=== PATIENT | male | born 1945 | race Caucasian/White ===

== ENCOUNTER → 2016-11-12 | Outpatient (CLI) | payer BC ==
[~2016-11-12] MED LIST: ASPI1TAB69 PO; ASPI81 PO; ATOR10 PO; ATOR10TA15 PO; BECL80AE3 INH; CALC1TAB12 PO; COEN400C2 PO; DICL75TA PO; FIBE0.523 PO; FISH1000 PO; FLUT1SPR5 EACH NARE; GLUC1CAP14 PO; GLUC500C56 PO; MELO7.5T PO; MULT1TAB84 PO; NIAC500T18 PO; OMEGCAP PO; OYST500T71 PO; PENT400T19 PO; RHINSUS; SAW500CA6 PO; TAB-TAB PO; VITA10007 PO; VITA500T10 PO; ZOFR8TAB PO
--- NOTE | 2016-11-12 19:35 | EKG ---
Date Performed: 11/12/2016 Time Performed: 10:21:38 PTAGE: 71 years EKG: Sinus rhythm SEPTAL MYOCARDIAL INFARCTION , PROBABLY OLD Compared to prior tracing no significant change ABNORMAL ECG PREVIOUS TRACING : 01/11/2013 13.52 DOCTOR: Maciel Delarosa Interpretating Date/Time 11/12/2016 19:35:21
== END ==
LOC: HECH 10:09
PROVIDERS: ATTEND Family Medicine
DX: Z01.818 Encounter for other preprocedural examination (principal); R94.31 Abnormal electrocardiogram [ECG] [EKG]
CPT/HCPCS: 93005

== ENCOUNTER → 2016-12-09 | Day surgery (SDC) | payer BC, MEDICARE ==
--- NOTE | 2016-11-17 18:37 | MH ---
cc: YESSENIA WINKLER DATE OF ADMISSION: 12/09/2016 ADMITTING DIAGNOSIS: 1. Complete rotator cuff tear of the left shoulder. 2. Acromioclavicular arthrosis, left shoulder. 3. Biceps tendon rupture, left shoulder. 4. Pain left shoulder. HISTORY OF PRESENT ILLNESS: The patient is a 71 year-old white male who has experienced pain involving his left shoulder of greater than sns-woc-m-half years duration. He had noted the gradual onset of soreness generalized about the shoulder area, unrelated to injury or unusual activity. During this interval of time he became increasingly more symptomatic with pain as he attempted to conform to a routine exercise program. He was aware of an intermittent grinding-like sensation about the shoulder area for which he has been taking diclofenac for pain management. He is uncertain as to whether or not the medication had really proven to be of any significant relief regarding his shoulder symptoms. He had also been applying a topical cream to the shoulder area. He presented to the undersigned physician in October of this past year and at that time x-ray studies of the left shoulder did reveal elevation of the humeral head in relationship to the glenoid. There was no significant degenerative change otherwise appreciated. The patient did receive a local steroid injection and subsequently underwent an MRI scan evaluation of his left shoulder, the results of which identified a full thickness tear of the supraspinatus tendon at its insertion including the distal fibers of the infraspinatus tendon with a gap measuring approximately 2 x 2.5 cm. There was severe thinning of the distal subscapularis tendon, associated fatty atrophy of the involved muscles. There was a moderately severe acromioclavicular joint arthrosis and a retracted proximal biceps tendon tear. The patient continued to experience pain about his shoulder area and expressed his desire to proceed with a more definitive course of treatment. The involvement of operative intervention involving an acromioplasty of the left shoulder with an attempted mini open rotator cuff repair was reviewed in detail. The patient indicated his understanding in this regard and expressed his desire to proceed accordingly. In compliance with his wishes, he is currently being admitted in order that the above be accomplished. He is left-hand dominant. PAST MEDICAL HISTORY, HOSPITALIZATIONS AND SURGERIES 1. Bilateral total hip arthroplasties. 2. Radical neck dissection for history of cancer with surgery, preceded by chemo and radiation therapy. 3. Dental extraction. 4. Colonoscopy. 5. Bilateral inguinal herniorrhaphies with mesh insertion. 6. Root canal. MEDICAL ILLNESSES 1. Elevated cholesterol. 2. History of cervical cancer. 3. Arthritis. CURRENT MEDICATIONS 1. Lipitor 10 mg daily. 2. Trental 400 mg twice daily. 3. Diclofenac 75 mg daily 4. 81 milligram aspirin tablet daily. 5. Zofran 8 mg as taken on a p.r.n. basis. Additional medications include qmwd-dxp-tjoyzes products such as: 1. Multivitamin tablet. 2. Co Q10. 3. Saw palmetto. 4. Calcium with D3. 5. Krill oil. 6. Niacin. 7. Collagen supplement. ALLERGIES: The patient denies any known drug allergies. He has an environmental allergy to dust mites, ragweed, mold, cats and cedar. REVIEW OF SYSTEMS: He does wear glasses. Denies headache, seizure. He has a history of syncope in the past. Auditory acuity intact. No tinnitus. No bleeding gums or dysphagia. No cough, shortness of breath, pneumonia or tuberculosis. No angina or heart disease. Appetite good. Bowel movements regular. No hepatitis, gallbladder disease or ulcers. He has had hemorrhoids in the past. No urinary tract infection. No kidney stones. No prostate disease, fracture of the right wrist and left ankle, treated nonoperatively. No psychiatric illness. The remainder of the review of systems is unremarkable and noncontributory. FAMILY HISTORY: The patient has been 30 years. His is 68 years of age in good health, no children. Family history of positive for heart and kidney disease, hypertension and stroke. 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 He completed a Ph.D. degree. He denies active use of tobacco, ethanol consumption involving wine with dinner. PHYSICAL EXAMINATION: Height 5 feet 7 inches, weight 214 pounds. GENERAL: An alert, oriented responsive 71-year-old white male who sits quietly upon the examination table with no obvious distress. HEAD, EYES, EARS, NOSE, AND THROAT: Pupils are equal, round and reactive to light. Extraocular movements full. Sclerae clear. External nares clear. External auditory canals clear. Dental intact. Mucous membranes pink and moist. Pharynx clear. There is contracted scar formation about the neck area consistent with prior history of radical neck dissection, limited mobility at the extremes of motion that the patient describes being chronic in nature. Trachea midline. Thyroid without enlargement. Lungs: Clear to auscultation and percussion. No CVA tenderness. No discomfort throughout the dorsal lumbar spine. Heart: Regular rhythm. No murmur or gallop. Abdomen: Soft, nontender. Bowel sounds present. Rectal: Per primary care physician. Extremities: Left shoulder: No significant tenderness is elicited with palpation about the shoulder area. There is limited mobility at the extremes of overhead positioning if the patient actively attempts to posture his left hand above his head. There is prominence of the biceps musculature consistent with a rupture of the long head of the biceps. No obvious instability about the shoulder joint. There is subjective crepitation at the extremes of motion. Drop arm test is minimally positive as is Everett sign. Mild weakness of external rotation. [employer] strength intact. Sensory intact. Neurologic: Cranial nerves II-XII grossly intact. IMPRESSION Complete rotator cuff tear of the left shoulder, acromioclavicular arthrosis, left shoulder biceps tendon rupture left shoulder, pain left shoulder PLAN Acromioplasty left shoulder with an attempted mini open rotator cuff repair. The nature of the planned surgical procedure, the potential complications and risks associated, the expectations of surgery and the consent form were thoroughly reviewed with the patient prior to his admission to the hospital. Giovanni has indicated his full understanding regarding all of the above and given consent to proceed with treatment as outlined. Medical evaluation and clearance for surgery will be completed by his primary care physician Dr. Ming Barbour. Yessenia Winkler MD [facility] /5:30 PM /5:43 PM
[~2016-12-09] VITALS: Ht 170.2 cm; Wt 95.5 kg
[~2016-12-09] MED LIST changes: -ASPI81 PO; -ATOR10 PO; +BUPIVACAINE HCL PF 0.5% 30 ML VIAL NB ONE; +DEXAMETHASONE SOD PHOS PF 10 MG/ML VIAL IV ONE; +FAMOTIDINE 20 MG/2 ML VIAL ONE; -FIBE0.523 PO; -FISH1000 PO; -GLUC500C56 PO; +INSULIN HUMAN REGULAR 1,000 UNITS/10 ML VIAL SQ PRN; +KETOROLAC TROMETHAMINE 60 MG/2 ML (IM) VIAL IM ONE; +LACTATED RINGER'S 1000 ML INJ 1,000 ML IV ONE; +LACTATED RINGER'S 1000 ML IV SCH; -MELO7.5T PO; +METOPROLOL TARTRATE 25 MG TAB PO PRN; +MIDAZOLAM HCL 2 MG/2 ML VIAL ONE; +MIDAZOLAM HCL 5 MG/5 ML VIAL ONE; -OYST500T71 PO; +PHENYLEPH/NS 1000 MCG/10 ML SYR IV ONE; +POVIDONE IODINE 7.5% SCRUB 118 ML BOTTLE TOP SCH; +PROPOFOL 200 MG/20 ML AMP IV ONE; -RHINSUS; -SAW500CA6 PO; +SODIUM CHLORID 0.9% 500 ML IV SCH; -TAB-TAB PO; -VITA500T10 PO; +ceFAZolin 2 GM PREMIX 50 ML IV SCH; +ceFAZolin INJ 1,000 MG VIAL ONE; +ePHEDrine/NS 25 MG/5 ML SYR IV ONE; +fentaNYL CITRATE 250 MCG/5 ML AMP ONE
[2016-12-09 06:11] VITALS: BP 150/74; PULSE 93; RESP 20; TEMP 99.9; O2SAT 95
[2016-12-09 10:58] VITALS: BP 122/72; PULSE 84; RESP 16; O2SAT 97
--- NOTE | 2016-12-09 23:38 | MP ---
cc: YESSENIA WINKLER M.D. DATE OF SURGERY: 12/09/2016 PREOPERATIVE DIAGNOSIS: Complete rotator cuff tear of the left shoulder, acromioclavicular arthrosis left shoulder, biceps tendon rupture left shoulder, pain left shoulder. POSTOPERATIVE DIAGNOSIS Complete rotator cuff tear of the left shoulder, acromioclavicular arthrosis left shoulder, biceps tendon rupture left shoulder, pain left shoulder. PROCEDURE: Acromioplasty left shoulder with mini open rotator cuff repair. SURGEON Yessenia Winkler M.D. ANESTHESIA General endotracheal FORMAT Following induction of satisfactory general anesthesia by endotracheal intubation as completed per the Department of Anesthesia the patient was positioned upon the operating table in a modified beach-chair configuration. The left shoulder and upper extremity proper were isolated with a U drape thereafter being prepped with Betadine solution and draped into a sterile field in the routine manner. Prior to initiation of the actual procedure the standard time-out protocol was completed, all parameters were appropriately addressed and confirmed by operating room personnel. A sharp skin incision was initiated over the superior aspect of the shoulder along the palpable margin of the acromion laterally and developed through underlying subcutaneous tissue with hemostasis maintained by electrocautery. By deepening dissection the underlying deltoid musculature was exposed along its anterior raphe, the deltoid was divided and medial to lateral orientation facilitating entry into the subacromial space. Examination revealed a complete avulsion of the supraspinatus tendon from its attachment site about the greater tuberosity. There was prominence of the anterior edge of the acromion consistent with an impingement type phenomenon. An oblique osteotomy of the anterior inferior margin of the acromion was accomplished with power saw. The undersurface of which was contoured with bone rasp. Visual and digital inspection thereafter confirmed an adequate decompression within the confines of the subacromial space. The avulsed segment of the underlying tendon was thereafter identified along the footprint, a superficial decortication with rongeur was accomplished and thereafter utilizing the Arthrex [place] Bridge technique two medial anchors were placed which FiberTape was passed through the substance of the supraspinatus tendon and advanced in a lateral orientation with two additional lateral anchors were placed securing the avulsed tendon segment. Passive range of motion thereafter demonstrated stability of the rotator cuff with no evidence of impingement. The wound was copiously irrigated with saline solution, inspected for hemostasis noted to be adequate. The deltoid was repaired with interrupted FiberWire suture. The remaining portion of the wound was closed in layers in a routine manner. Skin margins being reapproximated with a running subcuticular 3-0 Vicryl suture over which Steri-Strips were applied. Xeroform gauze and a bulky dry sterile dressing were placed. The extremity was supported in an arm sling. Anesthesia was discontinued. The patient thus transferred to a hospital stretcher and returned to the recovery room in satisfactory condition having tolerated his operative procedure well. Estimated blood loss was less than 10 cc. Yessenia Winkler MD [facility] /9:09 AM /11:24 PM
== END | disposition home or self-care (01) ==
LOC: HSDC 05:20
PROVIDERS: ATTEND Orthopaedic Surgery
DX: M75.122 Complete rotator cuff tear or rupture of left shoulder, not specified as traumatic (principal); M19.012 Primary osteoarthritis, left shoulder; E78.5 Hyperlipidemia, unspecified; E78.00 Pure hypercholesterolemia, unspecified; Z79.82 Long term (current) use of aspirin
CPT/HCPCS: 01630; 23420; 64415; C1713; J0690; J1885; J2250; J2370; J3010; J7120; J1100